=== PATIENT | male | born 1990 ===

== ENCOUNTER 2017-09-08 10:49 | Emergency (ER) | payer BC ==
[2017-09-08 11:02] VITALS: BMI 28.7
[2017-09-08 11:03] VITALS: RESP 18; TEMP 98.2
[2017-09-08] MEDS ORDERED: Sodium Chloride 0.9% 1,000 ML IV ONE (11:18)
[2017-09-08 11:43] LABS: BASO % 0.6 % (0.0-2.0); EOS # 0.1 K/uL (0.0-0.7); EOS % 3.4 % (0.0-4.0); HEMOGLOBIN 15.8 g/dL (12.0-18.0); LYMPH # 1.9 K/uL (1.0-4.3); LYMPH % 57.6 % (20.0-40.0); MEAN CELL VOLUME 92.2 fL (80.0-94.0); MEAN CORPUSCULAR HEMOGLOBIN 32.3 pg (27.0-31.0); MEAN PLATELET VOLUME 8.2 fL (7.2-11.7); MONO # 0.7 K/uL (0.0-0.8); MONO % 20.7 % (0.0-10.0); NEUT # 0.6 K/uL (1.8-7.0); NEUT % 17.7 % (50.0-75.0); NRBC % 0.3 % (0.0-2.0); PLATELET COUNT 175 K/uL (130-400); RBC 4.89 Mil/uL (4.40-5.90); RED CELL DISTRIBUTION WIDTH 13.4 % (11.5-14.5); WHITE BLOOD COUNT 3.4 K/uL (4.8-10.8)
[2017-09-08 11:47] LABS: URINE BILIRUBIN NEGATIVE (NEGATIVE); URINE BLOOD 1+ (NEGATIVE); URINE CLARITY Clear (Clear); URINE COLOR Yellow (YELLOW); URINE GLUCOSE (UA) NORMAL (Normal); URINE LEUKOCYTE ESTERASE NEG Leu/uL (Negative); URINE PROTEIN NEGATIVE (NEGATIVE); URINE UROBILINOGEN NORMAL mg/dL (0.2-1.0)
[2017-09-08 12:04] LABS: ALB/GLOB RATIO 1.3 (1.0-2.1); ALBUMIN 3.7 g/dL (3.5-5.0); ALT/SGPT 67 U/L (21-72); AST/SGOT 36 U/L (17-59); BLOOD UREA NITROGEN 12 mg/dL (9-20); CALCIUM 7.8 mg/dl (8.6-10.4); GFR AFRICAN-AMERICAN > 60; GFR NON-AFRICAN AMERICAN > 60; LIPASE 44 U/L (23-300)
[2017-09-08 12:47] LABS: EOSINOPHIL 3 % (0-4); LYMPHOCYTE 53 % (20-40); MONOCYTE 23 % (0-10); NEUTROPHIL 21 % (50-75); TOTAL CELLS COUNTED 100
[2017-09-08 12:48] LABS: PLATELET ESTIMATE NORMAL (NORMAL)
--- NOTE | 2017-09-08 13:41 | C.PDOC ---
History Of Present Illness 26 year old male presents to the emergency department with complaints of abdominal pain (cramping), nausea, vomiting, and diarrhea persisting for the past three days. Patient states that his symptoms improved after the first day but reoccurred today. Patient states that feels like his abdomen is "inflamed", but he denies fever, chest pain, shortness of breath, cough, and dysuria. Time Seen by Provider: 09/08/17 10:53 Chief Complaint (Nursing): Abdominal Pain History Per: Patient Onset/Duration Of Symptoms: Days (3) Current Symptoms Are (Timing): Still Present Location Of Pain/Discomfort: Other (abdomen) Quality Of Discomfort: Cramping Associated Symptoms: Nausea, Vomiting, Diarrhea. denies: Fever, Chest Pain, Urinary Symptoms (dysuria), Other (cough) Past Medical History Reviewed: Historical Data, Nursing Documentation, Vital Signs Vital Signs: Last Vital Signs Temp 98.2 F 09/08/17 11:02 Pulse 78 09/08/17 13:49 Resp 18 09/08/17 13:49 BP 112/70 09/08/17 13:49 Pulse Ox 99 09/08/17 13:49 - Medical History PMH: No Chronic Diseases Surgical History: No Surg Hx Family History: States: No Known Family Hx - Social History Hx Alcohol Use: No Hx Substance Use: No - Immunization History Hx Tetanus Toxoid Vaccination: No Hx Influenza Vaccination: No Hx Pneumococcal Vaccination: No Review Of Systems Constitutional: Negative for: Fever Cardiovascular: Negative for: Chest Pain Respiratory: Negative for: Cough, Shortness of Breath Gastrointestinal: Positive for: Nausea, Vomiting, Abdominal Pain, Diarrhea Genitourinary: Negative for: Dysuria Physical Exam - Physical Exam Appears: Non-toxic, No Acute Distress Cardiovascular: Rhythm Regular Respiratory: Normal Breath Sounds Gastrointestinal/Abdominal: Normal Exam, Soft, No Tenderness ED Course And Treatment - Laboratory Results Result Diagrams: 09/08/17 11:36 09/08/17 11:36 O2 Sat by Pulse Oximetry: 97 Disposition Counseled Patient/Family Regarding: Studies Performed, Diagnosis, Need For Followup - Disposition Referrals: [facility] at [facility] [Outside] Disposition: HOME/ ROUTINE Disposition Time: 13:40 Condition: STABLE Additional Instructions: FOLLOW UP WITH YOUR DOCTOR/CLINIC IN 1-2 DAYS DRINK PLENTY OF CLEAR FLUIDS RETURN TO EMERGENCY ROOM IF SYMPTOMS WORSEN SEGUIMIENTO CON MONACO MDICO / CLNICA EN 1-2 HUI DENNISE UN MONTN DE FLUIDOS ESTELLA REGRESE AL PRAVIN DE EMERGENCIA SI LOS SNTOMAS EMPEORAN Instructions: Diarrhea in Adolescents and Adults Forms: [facility] ([place]raltarian) Print Language: PRYDEINIG - Clinical Impression Clinical Impression: Diarrhea
[2017-09-08 13:50] VITALS: BP 112/70; PULSE 78
[2017-09-08 15:59] VITALS: O2SAT 97
== END 2017-09-08 13:49 | disposition home or self-care (01) ==
LOC: C.ER 10:49
DX: R19.7 Diarrhea, unspecified (principal)
CPT/HCPCS: 80053; 81001; 83690; 85025; 96360; 99284; J7040